=== PATIENT | male | born 1945 | race Caucasian/White ===

== ENCOUNTER 2019-02-13 17:42 | Emergency (ER) | payer MEDICARE, SELFPAY ==
[~2019-02-13 17:42] MED LIST: CIP500T PO; DYN500C PO; GABA-338 PO; METF500T PO; METH-234 PO; MORP10CA11 PO; NORCO10T PO; WHEE1EAC12 MC
[2019-02-13] MEDS ORDERED: ibuprofen tablet 400 MG TABLET PO ONE (17:50)
[2019-02-13] MEDS ORDERED: HYDROcodone/acetaminophen 5mg/325mg tablet PO ONE (17:50)
[2019-02-13] MEDS ORDERED: HYDR-3965 PO (18:48)
--- NOTE | 2019-02-13 18:56 | NUR ---
Dr yepezfs at bedside to check in on pt . Pt reports continues pain of 10 otu of 10 to his left flank. reports no broken ribs. pt was given norco and ibuprofen 1 hr ago. Current vss. Anticipate Dc shortly.
--- NOTE | 2019-02-13 19:07 | NUR ---
Pt does not know any phone number of anyone who can take him home. he reports he lives with a roomate who would pick him up if we can get ahold of him. [employer] has no contact infor for him. customer solutions coordinator, Alize, updated as pt is Dc ready. Now Transport Wait.
--- NOTE | 2019-02-13 19:35 | NUR ---
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 PT WITH NO ONE TO TAKE HIME HOME
[2019-02-13 19:36] VITALS: BP 130/79
== END 2019-02-13 19:42 | disposition home or self-care (01) ==
LOC: ER 17:43
DX: R07.89 Other chest pain (principal); E78.00 Pure hypercholesterolemia, unspecified; I10 Essential (primary) hypertension; I25.2 Old myocardial infarction; E11.9 Type 2 diabetes mellitus without complications; M19.90 Unspecified osteoarthritis, unspecified site; G89.29 Other chronic pain; F17.200 Nicotine dependence, unspecified, uncomplicated; Z90.49 Acquired absence of other specified parts of digestive tract; Z98.890 Other specified postprocedural states; Z88.2 Allergy status to sulfonamides; Z88.8 Allergy status to other drugs, medicaments and biological substances; W18.49XA Other slipping, tripping and stumbling without falling, initial encounter; Y93.89 Activity, other specified; Y92.89 Other specified places as the place of occurrence of the external cause; Y99.9 Unspecified external cause status
CPT/HCPCS: 71101; 99284

== ENCOUNTER 2023-01-13 06:57 | Day surgery (SDC) | payer MEDICARE, MEDICAID ==
[~2023-01-13] VITALS: Ht 172.7 cm; Wt 61.1 kg
[2023-01-13 07:00] VITALS: BP 195/68
[2023-01-13] MEDS ORDERED: LIDOcaine 1%/PF 5ML 10 MG/ML VIAL SQ ONE (07:00)
[2023-01-13] MEDS ORDERED: albumin 25% 100mL bottle x 1 IV PRN (07:25)
[2023-01-13] MEDS ORDERED: CARV-50 PO (07:52)
[2023-01-13] MEDS ORDERED: ALB0.5UD IH (07:52)
[2023-01-13] MEDS ORDERED: FLO0.4C PO (07:52)
[2023-01-13] MEDS ORDERED: CHLO25TA10 PO (07:52)
[2023-01-13] MEDS ORDERED: BISA10SU62 RC (07:52)
[2023-01-13] MEDS ORDERED: GABA-530 PO (07:52)
[2023-01-13] MEDS ORDERED: FAMO20TA8 PO (07:52)
[2023-01-13] MEDS ORDERED: UMEC1DIS INH (07:52)
[2023-01-13] MEDS ORDERED: CHOL200074 PO (07:52)
[2023-01-13] MEDS ORDERED: MAGN24002 PO (07:52)
[2023-01-13] MEDS ORDERED: ONDA4TAB12 PO (07:52)
[2023-01-13] MEDS ORDERED: MIRT-92 PO (07:52)
[2023-01-13] MEDS ORDERED: LISI5TAB22 PO (07:52)
[2023-01-13] MEDS ORDERED: LACT1CAP75 PO (07:52)
[2023-01-13] MEDS ORDERED: MULT-955 PO (07:52)
[2023-01-13] MEDS ORDERED: INSU100C4 SQ (07:52)
[2023-01-13] MEDS ORDERED: DILT-117 PO (07:52)
[2023-01-13] MEDS ORDERED: IPRA3AMP31 IH (07:52)
[2023-01-13] MEDS ORDERED: FERR325T28 PO (07:52)
[2023-01-13] MEDS ORDERED: CLON0.1T PO (07:52)
[2023-01-13] MEDS ORDERED: ATOR20TA66 PO (07:52)
[2023-01-13 09:15] VITALS: BP 188/70
[2023-01-13 09:20] VITALS: BP 190/62
[2023-01-13 09:35] VITALS: BP 160/59
[2023-01-13 09:50] VITALS: BP 163/66
== END 2023-01-13 10:05 ==
LOC: SSTAY O 06:57
PROVIDERS: ATTEND Radiology Diagnostic Radiology
DX: J90 Pleural effusion, not elsewhere classified (principal); J44.9 Chronic obstructive pulmonary disease, unspecified; E11.22 Type 2 diabetes mellitus with diabetic chronic kidney disease; I13.0 Hypertensive heart and chronic kidney disease with heart failure and stage 1 through stage 4 chronic kidney disease, or unspecified chronic kidney disease; N18.4 Chronic kidney disease, stage 4 (severe); I50.9 Heart failure, unspecified; I48.0 Paroxysmal atrial fibrillation; N40.0 Benign prostatic hyperplasia without lower urinary tract symptoms; E78.5 Hyperlipidemia, unspecified; D50.9 Iron deficiency anemia, unspecified; F32.A Depression, unspecified; I25.2 Old myocardial infarction; Z89.512 Acquired absence of left leg below knee; Z88.2 Allergy status to sulfonamides; Z88.8 Allergy status to other drugs, medicaments and biological substances; Z79.4 Long term (current) use of insulin; Z79.899 Other long term (current) drug therapy
CPT/HCPCS: 32555; 82948; C1729; J3490